=== PATIENT | male | born 1995 | race Asian ===

== ENCOUNTER 2018-08-03 13:22 | Emergency (ER) | payer SELFPAY ==
[~2018-08-03] VITALS: Ht 172.7 cm; Wt 82.6 kg
[2018-08-03 13:28] VITALS: BP 160/99; Ht 172.7 cm; Wt 82.6 kg
== END 2018-08-03 14:20 | disposition home or self-care (01) ==
LOC: ED 13:22
DX: G51.0 Bell's palsy (principal); F17.210 Nicotine dependence, cigarettes, uncomplicated; Z71.6 Tobacco abuse counseling; F12.90 Cannabis use, unspecified, uncomplicated
CPT/HCPCS: 99406